=== PATIENT | male | born 1930 | race Caucasian/White ===

== ENCOUNTER 2018-05-27 09:01 | Observation (INO) ==
[2018-05-27] MEDS ORDERED: Acetaminophen 325 MG Tablet PO ONE (09:22)
[2018-05-27] MEDS ORDERED: Sod Chloride 0.9% Inj 1,000 ML IV.SIG SCH (09:30)
[2018-05-27] MEDS ORDERED: Sod Chloride 0.9% Inj 400 ML IV.SIG SCH (09:30)
[2018-05-27] MEDS: Sod Chloride 0.9% Inj 1,000 ML IV.SIG SCH ×2 (09:36→15:37)
--- NOTE | 2018-05-27 09:40 | XR ---
EXAM DATE: 05/27/2018 9:35 AM EST AGE/SEX: 88 years / Male INDICATIONS: High fever and shortness of breath. CLINICAL DATA: This is the patient's initial encounter. Patient reports that signs and symptoms have been present for 2 days and indicates a pain score of 2/10. MEDICAL/SURGICAL HISTORY: . Hypertension. . Carcinoma, prostate. COMPARISON: [facility] [place], CHEST SINGLE AP, 12/12/2015. . FINDINGS: The heart is enlarged. Mild left perihilar infiltrate is noted. Minimal right mid lung field streakin ess is noted consistent with probable atelectasis. Degenerative changes are noted throughout the thor acic spine. Degenerative changes are also noted involving the shoulders bilaterally. CONCLUSION: 1. Mild left perihilar infiltrate consistent with possible pneumonia. Clinical correlation is recomm ended. 2. Minimal right mid lung field streakiness consistent with probable atelectasis. 3. Cardiomegaly. 4. Degenerative changes involving the thoracic spine and bilateral shoulders. Electronically signed by: Huber Brooks MD Board Certified Radiologist 05/27/2018 9:39 AM EST
[2018-05-27 09:47] LABS: Baso # (Auto) 0.1 th/mm3 (0.0-0.2); Baso % (Auto) 0.6 % (0.0-2.0); Eos % (Auto) 0.2 % (0.0-4.0); Hematocrit 37.8 % (39.0-51.0); Hemoglobin 13.5 gm/dL (13.0-17.0); Lymph # (Auto) 0.4 th/mm3 (1.0-4.8); Lymph % (Auto) 4.2 % (9.0-44.0); Mean Corpuscular HGB Conc 35.8 % (32.0-36.0); Mean Corpuscular Hemoglobin 36.1 pg (27.0-34.0); Mean Corpuscular Volume 100.8 fL (80.0-100.0); Mean Platelet Volume 9.1 fL (7.0-11.0); Mono # (Auto) 0.9 th/mm3 (0.0-0.9); Mono % (Auto) 10.6 % (0.0-8.0); Neut # (Auto) 7.6 th/mm3 (1.8-7.7); Neut % (Auto) 84.4 % (16.0-70.0); Platelet Count 106 th/mm3 (150-450); Red Blood Count 3.75 mil/mm3 (4.50-5.90); Red Cell Distribution Width 16.5 % (11.6-17.2)
--- NOTE | 2018-05-27 09:49 | ED ---
HPI General Chief complaint: Fever Stated complaint: Medical Time Seen by Provider: 05/27/18 09:11 Source: patient, family and RN notes reviewed Mode of arrival: ambulatory History of Present Illness HPI narrative: 88yM sent in by PMD for fever. The patient reports 3 days of fever up to 103F, was seen by his PMD yesterday and given "a shot of an antibiotic" and started on Cipro. He has continued to have high fevers and was sent in by his PMD for concern for sepsis. He admits to chills, body aches, non- productive cough, and frequent urination; denies chest pain, vomiting, or diarrhea. Related Data Home Medications Medication Instructions Recorded Confirmed celecoxib 200 mg PO DAILY 05/27/18 05/27/18 ciprofloxacin HCl [Cipro] 500 mg PO BID 05/27/18 05/27/18 coenzyme Q10 [Co Q-10] 100 mg PO DAILY 05/27/18 05/27/18 simvastatin 20 mg PO QPM 05/27/18 05/27/18 verapamil 180 mg PO DAILY 05/27/18 05/27/18 Allergies Allergy/AdvReac Type Severity Reaction Status Date / Time No Known Allergies Allergy Verified 05/27/18 09:07 Review of Systems ROS: all other systems reviewed are negative [facility] Medical History Medical History Arthritis (Acute) HTN (hypertension) (Acute) High cholesterol (Acute) UTI (urinary tract infection) (Acute) Surgical History Surgical History History of ankle surgery (Acute) History of prostate surgery (Acute) Hx of appendectomy (Acute) Hx of tonsillectomy (Acute) Social History Social History Substance History: No History of Abuse Second Hand Smoke Exposure: No Smoking Status: Former smoker Tobacco Type: Cigars How Often Do You Have a Drink Containing Alcohol: 2 to 4 times a month Recent Travel in [facility] within the Last 8 Weeks: No Recent Out of Country Travel within the Last 8 Weeks: No Immunization History Tetanus Immunization: <5 Years Exam Const General: healthy appearing and no acute distress HENMT Face and sinus: normal facial exam Eyes General: appearance normal, both eyes and all related structures Chest Chest: normal inspection of the chest Resp Effort & Inspection: normal respiratory effort Auscultation: no rhonchi and no wheezes Cardio Rate: regular rate Rhythm: regular rhythm GI Inspection: non-distended Palpation: soft and nontender Skin General: no rashes or lesions noted Neuro General: alert, awake, oriented x3 and no focal motor deficits Psych Affect: normal affect Course Initial Documented Vital Signs Temperature 100.5 F H 05/27/18 09:03 Pulse Rate 90 05/27/18 09:03 Respiratory Rate 18 05/27/18 09:03 Blood Pressure 115/63 05/27/18 09:03 Pulse Oximetry 92 L 05/27/18 09:03 Last Documented Vital Signs Temperature 100.5 F H 05/27/18 09:03 Pulse Rate 85 05/27/18 09:44 Respiratory Rate 16 05/27/18 09:40 Blood Pressure 117/57 L 05/27/18 09:40 Pulse Oximetry 94 L 05/27/18 09:44 Medical Decision Making [facility] Narrative Medical decision making narrative: Assessment: 88yM presenting with fever Plan: Sepsis workup (cultures, labs, IV fluids, antibiotics) CXR Will also obtain non-con CT abd/ pelvis to rule out hydronephrosis Addendum: Patient found to have UTI and community acquired pneumonia/ SIRS. He has failed outpatient antibiotics. Case discussed with [facility] Almanzar [facility]. Patient informed of the results of all labs and imaging. Medical Screen Exam Complete: Yes Emergency Medical Condition: Yes Differential Diagnosis Differential Diagnosis: Differential diagnosis includes, but is not limited to: sepsis/ SIRS, UTI/ pyelonephritis, PNA, electrolyte abnormality Medical Records Medical records reviewed: Yes I reviewed the patient's medical records. Lab Data Lab results reviewed: Yes I reviewed the patient's lab results. Result diagrams: 05/27/18 09:28 05/27/18 09:28 Lab Results 05/27/18 05/27/18 05/27/18 Range/Units 09:23 09:28 09:28 WBC 9.0 (4.0-11.0) th/mm3 RBC 3.75 L (4.50-5.90) mil/mm3 Hgb 13.5 (13.0-17.0) gm/dL Hct 37.8 L (39.0-51.0) % MCV 100.8 H (80.0-100.0) fL MCH 36.1 H (27.0-34.0) pg MCHC 35.8 (32.0-36.0) % RDW 16.5 (11.6-17.2) % Plt Count 106 L (150-450) th/mm3 MPV 9.1 (7.0-11.0) fL Neut % (Auto) 84.4 H (16.0-70.0) % Lymph % (Auto) 4.2 L (9.0-44.0) % [place] % (Auto) 10.6 H (0.0-8.0) % Eos % (Auto) 0.2 (0.0-4.0) % Baso % (Auto) 0.6 (0.0-2.0) % Neut # (Auto) 7.6 (1.8-7.7) th/mm3 Lymph # (Auto) 0.4 L (1.0-4.8) th/mm3 [place] # (Auto) 0.9 (0.0-0.9) th/mm3 Eos # (Auto) 0.0 (0.0-0.4) th/mm3 Baso # (Auto) 0.1 (0.0-0.2) th/mm3 WBC Differential . Differential Comment Auto diff final Sodium 135 L (136-145) meq/L Potassium 4.4 (3.5-5.1) meq/L Chloride 102 (98-107) meq/L Carbon Dioxide 22.7 (21.0-32.0) meq/L Anion Gap 10 (5-15) meq/L BUN 32 H (7-18) mg/dL Creatinine 1.47 H (0.60-1.30) mg/dL Estimated GFR 45 L (>89) mL/min Random Glucose 112 H (74-106) mg/dL Lactic Acid 1.2 (0.4-2.0) mmol/L Calcium 8.4 L (8.5-10.1) mg/dL Magnesium 2.4 (1.5-2.5) mg/dL Total Bilirubin 1.1 H (0.2-1.0) mg/dL AST 23 (15-37) U/L ALT 24 (12-78) U/L Alkaline Phosphatase 78 (45-117) U/L Total Protein 7.2 (6.4-8.2) g/dL Albumin 3.1 L (3.4-5.0) g/dL Urine Color (Yellw/Straw) Urine Clarity (Clear) Urine pH (5.0-8.5) Ur Specific Gilbert (1.002-1.035) Urine Protein (Neg-Trace) mg/dL Urine Glucose (UA) (Negative) mg/dL Urine Ketones (Negative) mg/dL Urine Occult Blood (Negative) Urine Nitrate (Negative) Urine Bilirubin (Negative) Urine Urobilinogen (Less than 2) mg/dL Ur Leukocyte Esterase (Negative) Urine RBC (0-3) /hpf Urine WBC (0-5) /hpf Ur Squamous Epith Cells (0-5) /hpf Urine Bacteria (None) /hpf Hyaline Casts (0-3) /lpf Urine Mucus (Occasional) /lpf Micro UA Comment Ur Microscopic Review Urine Culture Comments 05/27/18 Range/Units 10:40 WBC (4.0-11.0) th/mm3 RBC (4.50-5.90) mil/mm3 Hgb (13.0-17.0) gm/dL Hct (39.0-51.0) % MCV (80.0-100.0) fL MCH (27.0-34.0) pg MCHC (32.0-36.0) % RDW (11.6-17.2) % Plt Count (150-450) th/mm3 MPV (7.0-11.0) fL Neut % (Auto) (16.0-70.0) % Lymph % (Auto) (9.0-44.0) % [place] % (Auto) (0.0-8.0) % Eos % (Auto) (0.0-4.0) % Baso % (Auto) (0.0-2.0) % Neut # (Auto) (1.8-7.7) th/mm3 Lymph # (Auto) (1.0-4.8) th/mm3 [place] # (Auto) (0.0-0.9) th/mm3 Eos # (Auto) (0.0-0.4) th/mm3 Baso # (Auto) (0.0-0.2) th/mm3 WBC Differential Differential Comment Sodium (136-145) meq/L Potassium (3.5-5.1) meq/L Chloride (98-107) meq/L Carbon Dioxide (21.0-32.0) meq/L Anion Gap (5-15) meq/L BUN (7-18) mg/dL Creatinine (0.60-1.30) mg/dL Estimated GFR (>89) mL/min Random Glucose (74-106) mg/dL Lactic Acid (0.4-2.0) mmol/L Calcium (8.5-10.1) mg/dL Magnesium (1.5-2.5) mg/dL Total Bilirubin (0.2-1.0) mg/dL AST (15-37) U/L ALT (12-78) U/L Alkaline Phosphatase (45-117) U/L Total Protein (6.4-8.2) g/dL Albumin (3.4-5.0) g/dL Urine Color Yellow (Yellw/Straw) Urine Clarity Hazy H (Clear) Urine pH 5.0 (5.0-8.5) Ur Specific Gilbert 1.019 (1.002-1.035) Urine Protein 30 H (Neg-Trace) mg/dL Urine Glucose (UA) Negative (Negative) mg/dL Urine Ketones Negative (Negative) mg/dL Urine Occult Blood Negative (Negative) Urine Nitrate Negative (Negative) Urine Bilirubin Negative (Negative) Urine Urobilinogen Less than 2 (Less than 2) mg/dL Ur Leukocyte Esterase Negative (Negative) Urine RBC 4 H (0-3) /hpf Urine WBC Less than 1 (0-5) /hpf Ur Squamous Epith Cells <1 (0-5) /hpf Urine Bacteria Moderate H (None) /hpf Hyaline Casts 9 (0-3) /lpf Urine Mucus Moderate H (Occasional) /lpf Micro UA Comment Culture indicated Ur Microscopic Review Not Reportable Urine Culture Comments Culture indicated Imaging Data Radiologist's impression: Chest X-Ray 05/27/18 09:22 CONCLUSION: 1. Mild left perihilar infiltrate consistent with possible pneumonia. Clinical correlation is recommended. 2. Minimal right mid lung field streakiness consistent with probable atelectasis. 3. Cardiomegaly. 4. Degenerative changes involving the thoracic spine and bilateral shoulders. Abdomen/Pelvis CT 05/27/18 09:23 CONCLUSION: 1. Focal alveolar consolidation is noted within left lower lobe consistent with possible pneumonia. Clinical correlation is recommended. 2. Tiny left pleural effusion is noted. 3. Multiple bilateral renal cysts. 4. Cholelithiasis. 5. Uncomplicated colonic diverticulosis. 6. 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 7. Degenerative changes involving the thoracolumbar spine. 8. 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 9. Cardiomegaly. ECG Data Attestation: I personally reviewed and interpreted this ECG as follows: Interpretation: Rate: 80 BPM Rhythm: Sinus Odem: Normal Intervals: Normal intervals, no blocks, QTc 408 ms Q waves: III, aVF T waves: Inverted in III ST segments: No elevations or depressions Impression: Non-specific EKG, no significant changes as compared to EKG from 03/2006. Discharge Plan Discharge Disposition Patient Disposition: ED Admit(ED Internal Use Only) Discharge Condition Condition: Stable Discharge Order Discharge Orders: ED Use Only Admit Order (Routine); Ordered 05/27/18 Ordered By: Yumiko Calderón Discharge Details Diagnosis: Community acquired pneumonia, Acute UTI, SIRS (systemic inflammatory response syndrome) Physicians Team ED Provider: Yumiko Calderón Primary Care Provider: Andrew Craig Rxs /Orders / Referrals /Forms Prescriptions: No Action celecoxib 200 mg Capsule 200 mg PO DAILY RF: 0 verapamil 180 mg Tablet Extended Release 180 mg PO DAILY RF: 0 ciprofloxacin HCl [Cipro] 500 mg Tablet 500 mg PO BID RF: 0 simvastatin 20 mg Tablet 20 mg PO QPM RF: 0 coenzyme Q10 [Co Q-10] 100 mg Capsule 100 mg PO DAILY RF: 0 Discharge Interventions Interventions: Vital Signs Last Done: 05/27/18 09:40 Status ED Status: Pending Admission
[2018-05-27 10:00] LABS: Albumin 3.1 g/dL (3.4-5.0); Anion Gap 10 meq/L (5-15); Aspartate Aminotransferase 23 U/L (15-37); Blood Urea Nitrogen 32 mg/dL (7-18); Calcium 8.4 mg/dL (8.5-10.1); Carbon Dioxide 22.7 meq/L (21.0-32.0); Chloride 102 meq/L (98-107); Glomerular Filtration Rate 45 mL/min (>89); Glucose,Random 112 mg/dL (74-106); Magnesium 2.4 mg/dL (1.5-2.5); Potassium 4.4 meq/L (3.5-5.1); Sodium 135 meq/L (136-145)
[2018-05-27 10:03] LABS: Alanine Aminotransferase 24 U/L (12-78); Alkaline Phosphatase 78 U/L (45-117); Total Protein 7.2 g/dL (6.4-8.2)
[2018-05-27 10:59] LABS: Bacteria,Urine Moderate /hpf; Bilirubin,Urine Negative (Negative); Clarity,Urine Hazy (Clear); Color,Urine Yellow (Yellw/Straw); Glucose,Urine (UA) Negative (Negative); Hyaline Casts,Urine 9 /lpf (0-3); Leukocyte Esterase,Urine Negative (Negative); Mucus,Urine Moderate /lpf (Occasional); Nitrite,Urine Negative (Negative); Specific Gravity,Urine 1.019 (1.002-1.035); Squamous Epithelial Cell,Urine <1 /hpf (0-5)
[2018-05-27] MEDS ORDERED: Piperacil/Tazo 3.375 GM Premix 3.375 GM/50 ML PIGGYBACK IV.SIG ONE (11:03)
[2018-05-27] MEDS ORDERED: Vancomycin Inj 1,000 MG in Sodium Chlor 0.9% Inj 250 ML IV.SIG ONE (11:03)
--- NOTE | 2018-05-27 11:07 | CT ---
EXAM DATE: 05/27/2018 10:49 AM EST AGE/SEX: 88 years / Male INDICATIONS: Weakness. Fever. Unable to urinate. CLINICAL DATA: This is the patient's initial encounter. Patient reports that signs and symptoms have been present for 1 day and indicates a pain score of 0/10. MEDICAL/SURGICAL HISTORY: Hypertension. Appendectomy. Prostate surgery. RADIATION DOSE: 11.09 CTDI (mGy) COMPARISON: No prior exams available for comparison. TECHNIQUE: Multiple contiguous axial images were obtained through the abdomen. Images were obtained using multiple row detector helical technique. Using automated exposure control and adjustment of the mA and/or kV according to patient size, radiation dose was kept as low as reasonably achievable to o btain optimal diagnostic quality images. DICOM format image data is available electronically for rev iew and comparison. FINDINGS: Lower Lungs: Focal alveolar consolidation is noted within left lower lobe consistent with possible pn eumonia. Clinical correlation is recommended. Tiny left pleural effusion is noted. The heart is enlar ged. Liver: The liver has a homogeneous density without space-occupying lesion. There is no dilation of th e biliary tree. Calcified gallstones layer within the gallbladder lumen. Spleen: Homogeneous density without enlargement. Pancreas: Unremarkable without mass or calcification. Kidneys: Normal in size and shape. No evidence of mass or hydronephrosis. Multiple bilateral renal c ysts are noted. The largest is noted on the left and measures 5.7 cm. No calcified renal calculus is noted. Adrenal Glands: Unremarkable. Aorta: Minimal aneurysmal dilatation of the infrarenal abdominal aorta is noted measuring 2.8 x 2.8 cm. Bowel/Mesentery: Uncomplicated colonic diverticulosis is noted. No acute diverticulitis is noted. Abdominal Wall: Intact. Retroperitoneum: No evidence of adenopathy in the retrocrural, para-aortic, or deep pelvic regions. Bladder: Contours are smooth. Reproductive Organs: No abnormal masses or calcifications seen. Penile implant and reservoir are not ed. Inguinal: The inguinal region is unremarkable without evidence of adenopathy. Changes suggestive of right inguinal hernia repair are noted. Bony Structures: Degenerative changes are noted throughout the thoracolumbar spine. Multilevel spina l stenoses are noted. CONCLUSION: 1. Focal alveolar consolidation is noted within left lower lobe consistent with possible pneumonia. Clinical correlation is recommended. 2. Tiny left pleural effusion is noted. 3. Multiple bilateral renal cysts. 4. Cholelithiasis. 5. Uncomplicated colonic diverticulosis. 6. 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 7. Degenerative changes involving the thoracolumbar spine. 8. 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 9. Cardiomegaly. Electronically signed by: Huber Brooks MD Board Certified Radiologist 05/27/2018 11:05 AM EST
[2018-05-27] MEDS ORDERED: Azithromycin Inj 500 MG in Sodium Chlor 0.9% Inj 250 ML IV.SIG ONE (11:10)
[2018-05-27] MEDS ORDERED: Acetaminophen 325 MG Tablet PO PRN (14:51)
--- NOTE | 2018-05-27 14:57 | P.HPIM ---
History of Present Illness Primary Care Physician: Andrew Craig MD, PhD History of Present Illness: Mr. Enciso is a pleasant 88 y/o WM with HTN, hyperlipidemia, AAA and arthritis. He presented to the ED at [facility] on 05/27/18 with complaints of fevers/chills, generalized weakness that began around 3 days ago. He states that he started having increased rhinorrhea and then started with increased malaise and chills. He was having chills but didn't check his temperature until yesterday and had a fever of 103. Pt then developed some nausea and had a few episodes of vomiting. He was seen at [facility] Urgent care and was sent for blood work and given a shot of Rocephin. Pt was then prescribed Cipro 500mg BID. His labs from 05/26 noted WBC count 11.1, platelet count 95,000 , Cr 1.52/BUN 26. In the ED his repeat labs noted WBC count 9.0, Platelet count 106,000, Cr 1.47/BUN 32. Chest X-Ray in the ED noted mild left perihilar infiltrate consistent with possible pneumonia, minimal right mid lung field streakiness consistent with probable atelectasis, and cardiomegaly. CT Abd/ Pelvis also noted focal alveolar consolidation is noted within left lower lobe consistent with possible pneumonia. Blood cultures were drawn in the ED. He reports that he has had a mild cough in the last day or so no significant sputum production. Deneis any chest pain, SOB, wheezing, abd pain, diarrhea. He hasn't had a BM in a few days but states that he has not had much to eat in a few days. Past Medical Hx: HTN Hyperlipidemia AAA Arthritis Hx of prostate cancer Past Surgical Hx: Tonsillectomy Appendectomy Left ankle surgery Prostates surgery Penile prosthesis implantation Family Hx: Noncontributory Social Hx: Denies any tobacco use Occasional alcohol use Diagnosis (1) Community acquired pneumonia: (2) HTN (hypertension): (3) Hyperlipidemia: (4) LUZ (acute kidney injury): (5) Dehydration: Medications and Allergies Allergies Allergy/AdvReac Type Severity Reaction Status Date / Time No Known Allergies Allergy Verified 05/27/18 09:07 Home Medications Medication Instructions Recorded Confirmed Type celecoxib 200 mg PO DAILY 05/27/18 05/27/18 History ciprofloxacin HCl [Cipro] 500 mg PO BID 05/27/18 05/27/18 History coenzyme Q10 [Co Q-10] 100 mg PO DAILY 05/27/18 05/27/18 History simvastatin 20 mg PO QPM 05/27/18 05/27/18 History verapamil 180 mg PO DAILY 05/27/18 05/27/18 History Active Medications: Active Medications Sodium Chloride (Ns Inj) 1,000 mls @ 0 mls/hr IV.SIG .Q0M KIRSTEN Last Infusion: 05/27/18 11:00 Dose: Infused Sodium Chloride (Ns Inj) 1,000 mls @ 0 mls/hr IV.SIG .Q0M KIRSTEN Last Infusion: 05/27/18 11:00 Dose: Infused Sodium Chloride (Ns Inj) 400 mls @ 0 mls/hr IV.SIG .Q0M KIRSTEN Last Infusion: 05/27/18 12:10 Dose: Infused Physical Exam Vital signs: Last Vital Signs Temp 97.9 F 05/27/18 13:29 Pulse 72 05/27/18 13:29 Resp 16 05/27/18 13:29 BP 130/63 05/27/18 13:29 Pulse Ox 97 05/27/18 13:29 Narrative: GENERAL: NAD, AAOx3 SKIN: Warm and dry. HEENT: Atraumatic. Normocephalic. Pupils equal and round. No scleral icterus. No injection or drainage. No nasal bleeding or discharge. Mucous membranes pink and moist. NECK: Trachea midline. No JVD. CARDIO: Regular rate and rhythm. RESP: Coarse breath sounds at the left base with egophony. Some crackles at the right base. ABD: +BS, soft, non-tender, nondistended. EXT: Extremities without clubbing, cyanosis, or edema. No obvious deformities. NEURO: Awake and alert. No obvious cranial nerve deficits. Motor grossly within normal limits. Five out of 5 muscle strength in the arms and legs. Normal speech. PSYCHIATRIC: Appropriate mood and affect; insight and judgment normal. Results Labs CBC & Chem 7: 05/27/18 09:28 05/27/18 09:28 Imaging Chest X-Ray 05/27/18 09:22 CONCLUSION: 1. Mild left perihilar infiltrate consistent with possible pneumonia. Clinical correlation is recommended. 2. Minimal right mid lung field streakiness consistent with probable atelectasis. 3. Cardiomegaly. 4. Degenerative changes involving the thoracic spine and bilateral shoulders. Abdomen/Pelvis CT 05/27/18 09:23 CONCLUSION: 1. Focal alveolar consolidation is noted within left lower lobe consistent with possible pneumonia. Clinical correlation is recommended. 2. Tiny left pleural effusion is noted. 3. Multiple bilateral renal cysts. 4. Cholelithiasis. 5. Uncomplicated colonic diverticulosis. 6. 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 7. Degenerative changes involving the thoracolumbar spine. 8. 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 9. Cardiomegaly. Caprini VTE Risk Assessment Caprini VTE Risk Assessment: Moderate/High Risk (score >= 2) Caprini Risk Assessment Model: Point Value = 1 Point Value = 2 Point Value = 3 Point Value = 5 Age 41-60 Minor surgery BMI > 25 kg/m2 Swollen legs Varicose veins or History of unexplained or recurrent spontaneous Oral contraceptives or hormone replacement Sepsis (< 1 month) Serious lung disease, including pneumonia (< 1 month) Abnormal pulmonary function Acute myocardial infarction Congestive heart failure (< 1 month) History of inflammatory bowel disease Medical patient at bed rest Age 61-74 Arthroscopic surgery Major open surgery (> 45 min) Laparoscopic surgery (> 45 min) Malignancy Confined to bed (> 72 hours) Immobilizing plaster cast Central venous access Age >= 75 History of VTE Family history of VTE Factor V Leiden Prothrombin [id number] Lupus anticoagulant Anticardiolipin antibodies Elevated serum homocysteine Heparin-induced thrombocytopenia Other congenital or acquired thrombophilia Stroke (< 1 month) Elective arthroplasty Hip, pelvis, or leg fracture Acute spinal cord injury (< 1 month) Prophylaxis Regimen: Total Risk Factor Score Risk Level Prophylaxis Regimen 0-1 Low Early ambulation 2 Moderate Order ONE of the following: *Sequential Compression Device (SCD) *Heparin 5000 units SQ BID 3-4 Higher Order ONE of the following medications: *Heparin 5000 units SQ TID *Enoxaparin/Lovenox 40 mg SQ daily (WT < 150 kg, CrCl > 30 mL/min) *Enoxaparin/Lovenox 30 mg SQ daily (WT < 150 kg, CrCl > 10-29 mL/min) *Enoxaparin/Lovenox 30 mg SQ BID (WT < 150 kg, CrCl > 30 mL/min) AND/OR *Sequential Compression Device (SCD) 5 or more Highest Order ONE of the following medications: *Heparin 5000 units SQ TID (Preferred with Epidurals) *Enoxaparin/Lovenox 40 mg SQ daily (WT < 150 kg, CrCl > 30 mL/min) *Enoxaparin/Lovenox 30 mg SQ daily (WT < 150 kg, CrCl > 10-29 mL/min) *Enoxaparin/Lovenox 30 mg SQ BID (WT < 150 kg, CrCl > 30 mL/min) AND *Sequential Compression Device (SCD) Assessment and Plan Assessment (1) Community acquired pneumonia: Code(s): J18.9 - Pneumonia, unspecified organism Status: Acute (2) HTN (hypertension): Code(s): I10 - Essential (primary) hypertension Status: Chronic (3) Hyperlipidemia: Code(s): E78.5 - Hyperlipidemia, unspecified Status: Chronic (4) LUZ (acute kidney injury): Code(s): N17.9 - Acute kidney failure, unspecified Status: Acute (5) Dehydration: Code(s): E86.0 - Dehydration Status: Acute Plan CAP LUZ/dehydration - Pt is an 88 y/o WM with HTN, hyperlipidemia, AAA and arthritis. He presented to the ED at [facility] on 05/27/18 with complaints of fevers/chills, generalized weakness that began around 3 days ago. He states that he started having increased rhinorrhea and then started with increased malaise and chills. He was having chills but didn't check his temperature until yesterday and had a fever of 103. Pt then developed some nausea and had a few episodes of vomiting. He was seen at [facility] Urgent care and was sent for blood work and given a shot of Rocephin. Pt was then prescribed Cipro 500mg BID. - His outpt labs from 05/26 noted WBC count 11.1, platelet count 95,000, Cr 1.52 /BUN 26. - In the ED his repeat labs noted WBC count 9.0, Platelet count 106,000, Cr 1.47 /BUN 32. - Chest X-Ray (05/27/18) noted mild left perihilar infiltrate consistent with possible pneumonia, minimal right mid lung field streakiness consistent with probable atelectasis, and cardiomegaly. - CT Abd/Pelvis (05/27/18) also noted focal alveolar consolidation is noted within left lower lobe consistent with possible pneumonia. - Blood cultures were drawn in the ED - Pt tested negative for Influenza - Check Urine legionella and pneumococcal Ag - Await blood culture results as there is concern for possible bacteremia with his shaking chills. - Pt was given 3L of IVF in the ED as well as Azithromycin, Zosyn and Vancomycin - Cont. on Azithromycin and Rocephin - Mucinex BID, Claritin daily - Encourage pt to be off his back and deep breathing with IS as well as use of the Acapella. - Duonebs PRN - Pts UA was abnormal and Urine culture is pending, but pt without any UTI symptoms. - Recheck labs in AM - Supportive care - PT evaluation - DVT prophylaxis with SCDs HTN - Cont. home meds - Monitor Hyperlipidemia - Cont. home meds H&P: Quality VTE Deep Vein Thrombosis/Pulmonary Embolism Present on Admission: No _ (1) Community acquired pneumonia Qualifiers: Laterality: Lung location:
[2018-05-27] MEDS ORDERED: Sod Chloride 0.9% Inj 1,000 ML IV.CONT SCH (15:00)
[2018-05-27] MEDS ORDERED: Loratadine 10 MG Tablet PO ONE (16:03)
--- NOTE | 2018-05-27 20:27 | ECG ---
Date Performed: 05/27/2018 Time Performed: 09:50:06 PTAGE: 88 years EKG: Sinus rhythm WITH SINUS ARRHYTHMIA NORMAL ECG PREVIOUS TRACING : 06/10/2005 11.11 DOCTOR: Tai Hernández Interpretating Date/Time 05/27/2018 20:24:57
[2018-05-27] MEDS: guaiFENesin 600 MG ER Tablet PO SCH (20:31)
[2018-05-27] MEDS: Senna/Docusate Sodium 8.6/50 MG Tablet PO SCH (20:32)
[2018-05-28 07:34] LABS: Baso # (Auto) 0.1 th/mm3 (0.0-0.2); Eos # (Auto) 0.1 th/mm3 (0.0-0.4); Eos % (Auto) 2.4 % (0.0-4.0); Hematocrit 36.3 % (39.0-51.0); Hemoglobin 12.4 gm/dL (13.0-17.0); Lymph # (Auto) 0.6 th/mm3 (1.0-4.8); Lymph % (Auto) 10.9 % (9.0-44.0); Mean Corpuscular Hemoglobin 34.9 pg (27.0-34.0); Mean Corpuscular Volume 102.6 fL (80.0-100.0); Mean Platelet Volume 9.1 fL (7.0-11.0); Mono # (Auto) 0.8 th/mm3 (0.0-0.9); Mono % (Auto) 15.5 % (0.0-8.0); Neut # (Auto) 3.8 th/mm3 (1.8-7.7); Neut % (Auto) 70.2 % (16.0-70.0); Platelet Count 114 th/mm3 (150-450); Red Blood Count 3.54 mil/mm3 (4.50-5.90); Red Cell Distribution Width 16.1 % (11.6-17.2); White Blood Count 5.5 th/mm3 (4.0-11.0)
[2018-05-28 08:01] LABS: Alanine Aminotransferase 40 U/L (12-78); Albumin 2.8 g/dL (3.4-5.0); Alkaline Phosphatase 76 U/L (45-117); Anion Gap 11 meq/L (5-15); Aspartate Aminotransferase 55 U/L (15-37); Blood Urea Nitrogen 22 mg/dL (7-18); Calcium 8.1 mg/dL (8.5-10.1); Carbon Dioxide 22.2 meq/L (21.0-32.0); Chloride 104 meq/L (98-107); Glomerular Filtration Rate 58 mL/min (>89); Glucose,Random 88 mg/dL (74-106); Potassium 3.7 meq/L (3.5-5.1); Sodium 137 meq/L (136-145); Total Protein 6.5 g/dL (6.4-8.2)
[2018-05-28] MEDS ORDERED: Loratadine 10 MG Tablet PO SCH (09:00)
--- NOTE | 2018-05-28 09:12 | P.PNIM ---
Subjective Interval history: Pt reports that he is feeling much better today and wants to go home He had a fever of 100 at 0400 this morning Feels more steady on his feet and ambulated to the bathroom without difficulty this morning. Coughing up some phlegm this morning. Physical Exam Vital signs: Last Vital Signs Temp 98.0 F 05/28/18 07:28 Pulse 74 05/28/18 07:28 Resp 16 05/28/18 07:28 BP 137/64 05/28/18 07:28 Pulse Ox 94 L 05/28/18 07:28 Narrative: GENERAL: NAD, AAOx3 CARDIO: Regular rate and rhythm. RESP: Coarse breath sounds at the left base with egophony. Some crackles at the right base. ABD: +BS, soft, non-tender, nondistended. EXT: Extremities without clubbing, cyanosis, or edema. No obvious deformities. Results Labs CBC & Chem 7: 05/28/18 06:33 05/28/18 06:33 Imaging Chest X-Ray 05/27/18 09:22 CONCLUSION: 1. Mild left perihilar infiltrate consistent with possible pneumonia. Clinical correlation is recommended. 2. Minimal right mid lung field streakiness consistent with probable atelectasis. 3. Cardiomegaly. 4. Degenerative changes involving the thoracic spine and bilateral shoulders. Abdomen/Pelvis CT 05/27/18 09:23 CONCLUSION: 1. Focal alveolar consolidation is noted within left lower lobe consistent with possible pneumonia. Clinical correlation is recommended. 2. Tiny left pleural effusion is noted. 3. Multiple bilateral renal cysts. 4. Cholelithiasis. 5. Uncomplicated colonic diverticulosis. 6. 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 7. Degenerative changes involving the thoracolumbar spine. 8. 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 9. Cardiomegaly. Assessment and Plan Assessment (1) Community acquired pneumonia: Code(s): J18.9 - Pneumonia, unspecified organism Status: Acute (2) HTN (hypertension): Code(s): I10 - Essential (primary) hypertension Status: Chronic (3) Hyperlipidemia: Code(s): E78.5 - Hyperlipidemia, unspecified Status: Chronic (4) LUZ (acute kidney injury): Code(s): N17.9 - Acute kidney failure, unspecified Status: Acute (5) Dehydration: Code(s): E86.0 - Dehydration Status: Acute Plan CAP LUZ/dehydration - Pt is an 88 y/o WM with HTN, hyperlipidemia, AAA and arthritis. He presented to the ED at [facility] with complaints of fevers/chills, generalized weakness that began around 3 days ago. He states that he started having increased rhinorrhea and then started with increased malaise and chills. He was having chills but didn't check his temperature until yesterday and had a fever of 103. Pt then developed some nausea and had a few episodes of vomiting. He was seen at [facility] and was sent for blood work and given a shot of Rocephin. Pt was then prescribed Cipro 500mg BID. - His outpt labs from 05/26 noted WBC count 11.1, platelet count 95,000, Cr 1.52 /BUN 26. - In the ED his repeat labs noted WBC count 9.0, Platelet count 106,000, Cr 1.47 /BUN 32. - Chest X-Ray (05/27/18) noted mild left perihilar infiltrate consistent with possible pneumonia, minimal right mid lung field streakiness consistent with probable atelectasis, and cardiomegaly. - CT Abd/Pelvis (05/27/18) also noted focal alveolar consolidation is noted within left lower lobe consistent with possible pneumonia. - Blood cultures were drawn with NGTD - Pt tested negative for Influenza - Urine legionella and pneumococcal Ag negative. - Pt was given 3L of IVF in the ED as well as Azithromycin, Zosyn and Vancomycin - Cont. on Azithromycin and Rocephin - Mucinex BID, Claritin daily - Encourage pt to be off his back and deep breathing with IS as well as use of the Acapella. - Duonebs PRN - Sputum culture is pending. - Pts UA was abnormal and Urine culture is negative x 24 hours, but pt without any UTI symptoms. - Supportive care - Pt is requesting discharge to home today as he is overall feeling better. We will send him home with Levaquin 500mg daily x 10 days. He is to continue to use the Mucinex BID and Claritin which he states he will buy OTC. Stressed that he continue deep breathing and is to take his IS and Acapella home with him. - PT recommended HHC/PT and this will be ordered. - Pt is to followup with Dr. Craig in 1 week. He will likely need repeat imaging of his chest once his treatment is completed. HTN - Cont. home meds - Monitor Hyperlipidemia - Cont. home meds Progress Note: Quality VTE Deep Vein Thrombosis/Pulmonary Embolism Present on Admission: No _ (1) Community acquired pneumonia Qualifiers: Laterality: Lung location:
[2018-05-28] MEDS: guaiFENesin 600 MG ER Tablet PO SCH (09:18)
[2018-05-28] MEDS: Senna/Docusate Sodium 8.6/50 MG Tablet PO SCH (09:18)
[2018-05-28] MEDS ORDERED: Azithromycin Inj 500 MG in Sodium Chlor 0.9% Inj 250 ML IV.SIG SCH (13:00)
--- NOTE | 2018-05-28 14:27 | P.DCO ---
Diagnosis (1) Community acquired pneumonia: Status: Acute (2) HTN (hypertension): Status: Chronic (3) Hyperlipidemia: Status: Chronic (4) LUZ (acute kidney injury): Status: Acute (5) Dehydration: Status: Acute Physical Therapy Order: Evaluate and treat Home Health Nursing Order: Nursing assessment with vital signs Case Management Consult Case Management Consult-Home Health: Yes I have seen patient Jaswinder Enciso on 05/28/18. My clinical findings support the need for the requested home health care services because: Deconditioned with increased weakness I certify that my clinical findings support that this patient is homebound because: Unsteady gait/balance _ (1) Community acquired pneumonia Qualifiers: Laterality: Lung location:
== END 2018-05-28 16:40 | disposition home health service (06) ==
LOC: NEPE 09:01 → NEDA 09:01 → NEPHCDU 12:35
PROVIDERS: ADMIT Hospitalist; ATTEND Hospitalist
CPT/HCPCS: 71010; 71045; 74176; 80053; 81001; 83605; 83735; 85025; 87040; 87070; 87086; 87205; 87275; 87276; 87449; 87804; 90761; 93005; 94150; 94667; 94668; 96361; 96365; 96366; 96368; 97163; 99285; G0378; G8987; G8988; J0456; J0696; J2543; J3370; J7030; J7050